=== PATIENT | male | born 1965 | race Caucasian/White ===

== ENCOUNTER 2023-10-08 17:48 | Emergency (ER) | payer OTHER, SELFPAY ==
[2023-10-08 17:51] VITALS: BP 115/73
--- NOTE | 2023-10-08 17:55 | ED.PDOC.TRB ---
ED Provider Triage
-
Patient seen by provider in Triage?: Seen in Triage
A medical screening examination has been initiated by a qualified medical provider. Based on the assessment performed at this time, it has been determined that an emergent medical condition may exist and the patient has been informed that further
medical evaluation and possible additional diagnostic testing may be needed.
HPI: This is a medical evaluation conducted in person to initiate diagnostic evaluation and provide initial therapeutics. Please see further documentation by the treating clinician.
GENERAL: Alert ,
EYE: No visual abnormalities.
NECK: Trachea midline
ENT: No visible abnormalities.
LUNGS: No acute respiratory distress
NEUROLOGICAL: Alert and oriented
SKIN: no visible lesions.
MUSCULOSKELETAL: Moving extremities normally
PSYCH: Very talkative and tangential
58-year-old male with I[place] history of seizure disorder previous brain tumor presenting to the emergency department with his for concerns of altered mental status today. He claims to be very confused and rambling which is not typical for
him. He does have a history of brain tumor in the past. Plan for labs CT head otherwise oriented here to person place and time no specific describe symptoms for the patient.
[2023-10-08 18:47] LABS: % Basophils 0.7 % (0-2); % Eosinophils 0.5 % (0-6); % Immature Granulocytes 0.6 % (0-0.5); % Lymphocytes 7.4 % (20.5-51.1); % Monocytes 7.2 % (1.7-9.3); % Neutrophils 83.6 % (42.2-75.2); Absolute Basophils 0.1 10^3/uL (0-0.2); Absolute Eosinophils 0.1 10^3/uL (0-0.7); Absolute Immature Granulocytes 0.1 10^3/uL (0-0.05); Absolute Lymphocytes 0.7 10^3/uL (1.2-3.4); Absolute Monocytes 0.7 10^3/uL (0.1-0.6); Absolute Neutrophils 8.1 10^3/uL (1.4-6.5); Hematocrit 45.1 % (39.0-52.0); Hemoglobin 16.4 g/dL (13.0-18.0); Mean Corp Hgb Conc. 36.4 g/dL (33.0-37.0); Mean Corpuscular Hgb 32.3 pg (27.0-31.0); Mean Corpuscular Volume 88.8 fL (80.0-94.0); Nucleated Red Blood Cells % 0 % (-); Platelet Count 206 10^3/uL (130-400); Red Blood Cell Count 5.08 10^6/uL (4.70-6.10); Red Cell Dist. Width 11.9 % (11.5-14.5); White Blood Cell Count 9.7 10^3/uL (4.8-10.8)
[2023-10-08 19:03] LABS: COVID-19 Antigen Positive (Negative)
[2023-10-08 19:12] LABS: ALT (SGPT) 44 U/L (0-50); AST (SGOT) 31 U/L (17-59); Albumin 4.8 g/dl (3.5-5.0); Alkaline Phosphatase 95 U/L (38-126); Blood Urea Nitrogen 17 mg/dl (9-20); Calcium 9.8 mg/dl (8.4-10.2); Carbon Dioxide 29 mmol/L (22-30); Chloride 100 mmol/L (98-107); Glucose 135 mg/dl (70-99); Potassium 3.7 mmol/L (3.5-5.1); Sodium 141 mmol/L (135-145); Total Bilirubin 0.7 mg/dl (0.2-1.3); Total Protein 6.9 g/dl (6.3-8.2); eGFR > 60.00
[2023-10-08 19:15] LABS: Alcohol None Detected
[2023-10-08] MEDS: DUONEB 3 ML INH (20:42)
[2023-10-08] MEDS: TYLENOL PO ×2 (20:42)
[2023-10-08] MEDS: NSS 1000 IV (20:42)
[2023-10-08 20:54] VITALS: BP 130/80; BMI 31.2
--- NOTE | 2023-10-08 20:56 | ED.GENMED ---
History of Present Illness
General
Chief Complaint: Change in Mental Status
Source: patient and spouse
Exam Limitations: none
Time Seen by Provider: 10/08/23 20:02
Nursing documentation reviewed up to this point in time: agreed with
History of Present Illness
History of Present Illness:
Agree with Ed Zak's assessment and plan, patient with a period of confusion URI symptoms for the past day or so positive COVID has been vaccinated never had a before nonfocal neurologic exam, no seizure-like activity concerned that he was
confused earlier, while at the [facility], been compliant with his meds
Past History
Past History
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
ED Past Surgical History: Brain
Social History
Tobacco: Non-smoker
Alcohol: None
Drug: None
Personal:
Living: with family
Employment: Employed
Review of Systems
Review of Systems
All Other Systems: Not applicable
Constitutional: Reports fatigue; Denies fever
EENT: Reports no symptoms
Respiratory: Reports cough; Denies trouble breathing
Cardiac: Reports no symptoms
ABD/GI: Reports no symptoms
: Reports no symptoms
Musculoskeletal: Reports muscle pain and muscle stiffness
Neurological: Reports weakness; Denies headache
Endocrine: Reports no symptoms
Psychiatric: Reports no symptoms
Phy Exam
Physical Exam
Physical Exam:
Physical Exam
General: no apparent distress, not acutely ill
Neck: No jaundice occasionally cough
Heart: s1/s2 regular rate and rhythm, no murmur. equal radial pulses.
Lungs: no acute respiratory distress. Diminished at the bases without wheeze or rales
Abdomen: Nontender
Neuro: alert and oriented. no focal neurological deficits
Skin: no rash
Psychiatric: well kept. interactive and cooperative
Extremities: no edema.
Course
Orders/Labs/Results
Orders:
Orders
10/08/23 17:54
EKG [Electrocardiogram (*1)] Urgent
Reason for Study: Fatigue / Weakness
CT Head W/o Iv Contrast Urgent
Comment:
Reason For Exam: AMS
EKG- Treatment ONCE
10/08/23 18:01
Alcohol Urgent
CBC/With Diff [Complete Blood Count/With Diff] Urgent
CMP [Comprehensive Metabolic Panel] Urgent
COVID-19 Antigen Urgent
Source: Nasal Swab
10/08/23 20:25
0.9% Sodium Chloride 1000 ml [Nss] 1,000 ml IV BOLUS
Acetaminophen [Tylenol] 650 mg PO NOW STA
Ipratropium/Albuterol Sulfate [Duoneb] 3 ml INH R NOW STA
10/08/23 20:52
Urinalysis Reflex To Culture Urgent
Date Specimen was Collected: 10/08/23
Time Specimen was Collected: 20:28
Urine Drug Abuse Screen Urgent
Date Specimen was Collected: 10/08/23
Time Specimen was Collected: 20:28
Abnormal Lab Results
10/08/23
18:01
MCH 32.3 H pg
(27.0-31.0)
MPV 11.0 H fL
(7.4-10.4)
Abs Immat Gran (auto) 0.1 H 10^3/uL
(0-0.05)
Absolute Neuts (auto) 8.1 H 10^3/uL
(1.4-6.5)
Absolute Lymphs (auto) 0.7 L 10^3/uL
(1.2-3.4)
Absolute Monos (auto) 0.7 H 10^3/uL
(0.1-0.6)
Immature Gran % 0.6 H %
(0-0.5)
Neutrophils % 83.6 H %
(42.2-75.2)
Lymphocytes % 7.4 L %
(20.5-51.1)
Glucose 135 H mg/dl
(70-99)
SARS-CoV-2 Antigen Positive A
(Negative)
10/08/23 18:01
10/08/23 18:01
Vital Signs
Initial and Last Documented VS:
Initial Vital Signs
Temp Pulse Resp BP Pulse Ox
98.3 F 94 20 115/73 94
10/08/23 17:51 10/08/23 17:51 10/08/23 17:51 10/08/23 17:51 10/08/23 17:51
Last Documented Vital Signs
Temp Pulse Resp BP Pulse Ox
98.3 F 78 16 130/80 98
10/08/23 17:51 10/08/23 20:54 10/08/23 20:54 10/08/23 20:54 10/08/23 20:54
MDM/Problems Addressed
Differential Diagnosis Includes:
Infection electrolyte abnormality viral syndrome COVID intracerebral hemorrhage less likely stroke no signs of seizure at this point
MDM/Problems Addressed:
Cough weakness confusion
Chronic conditions affecting care: Neurological disorder
Acute Exacerbation and/or Progression of Chronic Illness: Neurological disorder
*Radiology
Radiology exam reviewed: radiology read reviewed
*Pulse Oximetry
Patient hypoxic: no
*EKG
Interpreted by ED Provider?: Yes
Interpretation: abnormal
Comparison EKG: no comparison EKG present
Heart Rate: 78
Rate: normal
Rhythm: sinus
Ischemia: non-specific ST changes
*Insurance Salesman Interpretation
Rate: Insurance Salesman- N/A
*Critical Care Note
Total Time (30-74mins, 75-104mins- exclusive of procedures): Not Applicable
Update Note
Update Note:
Update history fits with COVID illness, suspect that explains his mental status change, no convincing evidence of seizure, will provide supportive care fluids albuterol Tylenol, consideration for antivirals if no contraindications
Package insert from Paxlovid reviewed can change seizure threshold to interact with antiepileptics I believe the risks and benefits support not giving the medication
ED Attending Note
-
Portions of this chart may have been created with voice recognition software.� Occasional wrong word or��sound alike� substitutions may have occurred due to the inherent limitations of voice recognition software.
Discharge Plan
Departure
Prescriptions:
No Action
irbesartan 300 mg Tablet
300 mg PO DAILY
DayQuil Sinus Pressure/Pain 30-200 mg Tablet
1 tab PO DAILYPRN PRN (Reason: flu symptoms)
hydrochlorothiazide 25 mg Tablet
25 mg PO DAILY
levetiracetam 500 mg Tablet Extended Release 24 Hr
1,000 mg PO BID
lacosamide 100 mg Tablet
100 mg PO BID
nebivolol 20 mg Tablet
20 mg PO DAILY
Referrals:
UNKNOWN - PT DOES,NOT KNOW [Family Provider] -
Interventions
Interventions:
*Risk Screen - Suicide Last Done: 10/08/23 17:51
*General Assessment Last Done: 10/08/23 17:51
*Neglect/Abuse Screening Last Done: 10/08/23 17:51
ED- Neurological Assessment Last Done: 10/08/23 20:54
ED Swallowing Screen Last Done: 10/08/23 20:54
Discharge Date and Time
Print Language: WOLOF
[2023-10-08 21:01] LABS: Urine Albumin Negative (Neg - Trace); Urine Bilirubin Negative (Negative); Urine Character Clear (Clear); Urine Color Yellow; Urine Glucose Negative (Negative); Urine Ketone Negative (Negative); Urine Leukocyte Negative (Negative); Urine Nitrite Negative (Negative); Urine Occult Blood Negative (Negative); Urine Specific Gravity 1.015 (<1.030); Urine Urobilinogen Negative (Neg - 1+)
[2023-10-08 21:10] LABS: Amphetamines Negative (Negative); Barbiturates Negative (Negative); Benzodiazepines Negative (Negative); Buprenorphine Negative (Negative); Cocaine Negative (Negative); Marijuana Negative (Negative); Methadone Negative (Negative); Methamphetamines Negative (Negative); Opiates Negative (Negative); Phencyclidine Negative (Negative); Tricyclic Antidepressants Negative (Negative)
[2023-10-08] MEDS: TYLENOL 650 MG PO (21:49)
== END 2023-10-08 22:01 | disposition home or self-care (01) ==
LOC: EMR 17:48
PROVIDERS: Physician Assistant; EMERGENCY PHYSICIAN Emergency Medicine
DX: G40.909 Epilepsy, unspecified, not intractable, without status epilepticus (principal); Z86.73 Personal history of transient ischemic attack (TIA), and cerebral infarction without residual deficits
CPT/HCPCS: 99284; 94640; 96360; 70450; 80053; 80306; 81003; 82077; 85025; 87811; 93005